=== PATIENT | male | born 1980 | race Caucasian/White ===

== ENCOUNTER 2019-11-23 17:38 | Emergency (ER) | payer OTHER, SELFPAY ==
[2019-11-23 17:44] VITALS: BP 135/89; PULSE 99; RESP 18; TEMP 36.9; O2SAT 99
--- NOTE | 2019-11-23 18:35 | ED.WOUNDLAC ---
HPI - Wound/Laceration General Chief Complaint: Wound/Laceration Stated Complaint: Diabetic Foot Sores Time Seen by Provider: 11/23/19 17:43 Source: patient and RN notes reviewed Mode of arrival: ambulatory Limitations: no limitations History of Present Illness HPI narrative: A 39 y/o male presents to the ED from home with multiple diabetic foot sore on his [place] feet. He states that he has had a sore on each of his great toes for the past 3-4 weeks. He reports that today when he took his boots off after a 10 hour workday he noticed that the bottom of his rt foot was covered in blood with a new wound, so he decided to come to the ED. He notes that he moved down here recently and that his PCP is currently mailing him his medications. He denies any pain, numbness, tingling, fevers, chills, SOB, CP, N/V/D, or ABD pain. Onset (ago): hour(s) Extremity Location: Bilateral: foot Place: home and work Context: other (taking boots off after a 10 hour workday) Associated symptoms: other (bleeding) Related Data Home Medications Medication Instructions Recorded Confirmed Humalog U-100 Insulin 10/31/19 levothyroxine 10/31/19 losartan 10/31/19 metformin 10/31/19 metoprolol tartrate 10/31/19 pravastatin 10/31/19 Allergies Allergy/AdvReac Type Severity Reaction Status Date / Time shellfish derived Allergy Severe Anaphylactic Verified 11/23/19 17:57 Shock Review of Systems Review of Systems: All systems reviewed & are unremarkable except as noted in HPI and below Constitutional: Constitutional: Denies chills and Denies fever(s) Cardiovascular: Cardiovascular: Denies chest pain Respiratory: Respiratory: Denies dyspnea Gastrointestinal: Gastrointestinal: Denies abdominal pain, Denies diarrhea, Denies nausea and Denies vomiting Integumentary/Breasts: Skin/Breast: Reports skin ulcer (multiple on [place] feet) and Reports wounds (bottom on rt foot) Neurologic: Denies numbness and Denies tingling PMFSH Past Medical History Medical History Osteomyelitis Type I diabetes mellitus Surgical History Surgical History Amputation toe Rt 4th Social History Social History Smoking status: Unknown if ever smoked Gender identity (if verbalized by the patient): Male Exam Narrative: Exam Narrative: General appearance: Well-developed, well-nourished Skin: Normal color. Right foot showed 3 x 3 cm skin avulsion at the plantar side of first metatarsophalangeal joint Head: Normocephalic, nontraumatic Chest and respiratory: Airway patent, no respiratory distress, no accessory muscle use Heart: Regular rate/rhythm Vascular: Normal peripheral pulses, normal capillary refill. Musculoskeletal: Normal range of motion, nontender back Neurologic: Alert and oriented ?3, PH[employer] TUTOR is normal as tested, no gross motor deficit Course Course Emergency Course: Improving Vital Signs Vital signs: Vital Signs Temperature 36.9 C 11/23/19 17:44 Pulse Rate 99 11/23/19 17:44 Respiratory Rate 18 11/23/19 17:44 Blood Pressure 135/89 11/23/19 17:44 Pulse Oximetry 99 11/23/19 17:44 Temperature 36.9 C 11/23/19 17:44 Pulse Rate 99 11/23/19 17:44 Respiratory Rate 18 11/23/19 17:44 Blood Pressure 135/89 11/23/19 17:44 Pulse Oximetry 99 11/23/19 17:44 Procedures Laceration Laceration 1: Date: 11/23/19 Time: 19:39 Site: other (Right foot) Size (cm): 3 Description: flap and clean Depth: simple, single layer Pre-repair: wound explored, irrigated and
[2019-11-23 20:20] VITALS: BP 134/85; PULSE 81; RESP 20; O2SAT 99
== END 2019-11-23 20:20 | disposition home or self-care (01) ==
PROVIDERS: Emergency Provider Emergency Medicine
DX: S91.301A Unspecified open wound, right foot, initial encounter (principal); Z89.421 Acquired absence of other right toe(s); E10.621 Type 1 diabetes mellitus with foot ulcer; L97.519 Non-pressure chronic ulcer of other part of right foot with unspecified severity; L97.529 Non-pressure chronic ulcer of other part of left foot with unspecified severity; X58.XXXA Exposure to other specified factors, initial encounter; Z79.84 Long term (current) use of oral hypoglycemic drugs; Z79.4 Long term (current) use of insulin
CPT/HCPCS: 99283